=== PATIENT | female | born 1990 | race Caucasian/White ===

== ENCOUNTER 2021-02-10 13:35 | Outpatient (CLI) | payer BC, OTHER ==
[2021-02-10 15:48] LABS: BHCG - Serum Negative (NEGATIVE); Pregs Control Background? CLEAR/WHITE (CLR/WHITE); Pregs Control Bar Appear? YES (CONTROL BAR)
[2021-02-10 15:55] LABS: Anion Gap 13 mmol/L (10-20); BUN (Urea Nitrogen) 12 mg/dL (7.0-18.7); Calc. Creatinine Clearance 0 mL/min (70-130); Calcium 9.1 mg/dL (7.8-10.44); Carbon Dioxide 23 mmol/L (22-29); Chloride 106 mmol/L (98-107); Glucose 105 mg/dL (70-105); Potassium 4.1 mmol/L (3.5-5.1); Sodium 138 mmol/L (136-145)
[2021-02-10 16:14] LABS: Hemoglobin 13.9 g/dL (12.0-15.5); Mean Corpuscular HGB CONC 33.6 g/dL (32.0-36.0); Mean Corpuscular Hemoglobin 28.9 pg (27.0-33.0); Mean Corpuscular Volume 86.1 fl (81.6-98.3); Platelet Count 291 10x3/uL (150-450); RBC Distribution Width 11.9 % (11.5-14.5); Red Blood Cell (RBC) Count 4.81 10x6/uL (3.90-5.03)
[2021-02-10 21:15] LABS: SARS-CoV-2 PCR by NAA Not Detected (NotDetected)
== END 2021-02-10 13:36 | disposition home or self-care (01) ==
LOC: CSHLAB 13:35
PROVIDERS: ATTEND Orthopaedic Surgery
DX: Z01.812 Encounter for preprocedural laboratory examination (principal); Z20.822 Contact with and (suspected) exposure to COVID-19; M24.151 Other articular cartilage disorders, right hip; M25.851 Other specified joint disorders, right hip
CPT/HCPCS: 80048; 84703; 85027; U0003; U0005

== ENCOUNTER 2021-02-15 09:35 | Day surgery (SDC) | payer BC, OTHER ==
[2021-02-13 15:07] VITALS: BMI 31.7
[2021-02-15] MEDS ORDERED: Lidocaine 1% MPF 2 ML VIAL ONE (10:21)
[2021-02-15] MEDS ORDERED: Scopolamine 1.5 mg/72 hour Patch ONE (11:02)
[2021-02-15] MEDS ORDERED: Fentanyl 100 MCG/2 ML VIAL ONE ×2 (11:02→16:19)
[2021-02-15] MEDS ORDERED: Midazolam HCl 2 mg/2 ml Vial ONE ×2 (11:02→13:12)
[2021-02-15] MEDS ORDERED: Bupivacaine PF 0.5% 30 ML VIAL ONE ×2 (11:09→13:32)
[2021-02-15] MEDS ORDERED: Dexamethasone 4 mg/ml Vial ONE (11:09)
[2021-02-15] MEDS ORDERED: Lidocaine 1% PF 5 ML VIAL ONE (13:12)
[2021-02-15] MEDS ORDERED: Ondansetron PF 4 MG/2 ML Vial ONE (13:12)
[2021-02-15] MEDS ORDERED: PROPOFOL 20 ML ONE (13:12)
[2021-02-15] MEDS ORDERED: Fentanyl 250 MCG/5 ML VIAL ONE (13:12)
[2021-02-15] MEDS ORDERED: Rocuronium Bromide 10 MG/ML (10ML VIAL) ONE ×2 (13:12→13:14)
[2021-02-15] MEDS ORDERED: Ketorolac Tromethamine 30 MG/ML VIAL ONE (13:15)
[2021-02-15] MEDS ORDERED: EPINEPHrine 1 MG/ML AMP ONE ×2 (13:32→14:45)
[2021-02-15] MEDS ORDERED: Tranexamic Acid 1,000 MG/10 ML VIAL ONE (13:32)
[2021-02-15] MEDS ORDERED: Glycopyrrolate 0.2 MG/ML 5 ML SYRINGE ONE (15:11)
[2021-02-15] MEDS ORDERED: Morphine 4 MG/ML VIAL ONE (17:30)
[2021-02-15] MEDS ORDERED: HYDROcodone/Acetaminophen 10/325 mg Tablet ONE (17:47)
== END 2021-02-15 18:15 | disposition home or self-care (01) ==
LOC: CSHSDC 09:35
PROVIDERS: ATTEND Orthopaedic Surgery
PROC: 0QB54ZZ Excision of Left Acetabulum, Percutaneous Endoscopic Approach (ICD-10-PCS; principal; 2021-02-15)
PROC: 0QB74ZZ Excision of Left Upper Femur, Percutaneous Endoscopic Approach (ICD-10-PCS; principal; 2021-02-15)
PROC: 0SQB4ZZ Repair Left Hip Joint, Percutaneous Endoscopic Approach (ICD-10-PCS; principal; 2021-02-15)
DX: S73.102A Unspecified sprain of left hip, initial encounter (principal); M25.852 Other specified joint disorders, left hip; M24.10 Other articular cartilage disorders, unspecified site
CPT/HCPCS: 76000; C1713; J0171; J0690; J1100; J1885; J2250; J2270; J2405; J2704; J3010; S0020